=== PATIENT | male | born 1960 | race Caucasian/White ===

== ENCOUNTER 2016-09-23 01:03 | Inpatient (IN) | payer BC, OTHER ==
--- NOTE | ~2016-09-23 | EKG ---
PATIENT: BUSHRA GHOTRA UNIT #: [id number] Ventricular Rate: 70 BPM Atrial Rate: 70 BPM P-R Interval: 164 ms QRS Duration: 90 ms Q-T Interval: 448 ms QTC Calculation(Bezet): 483 ms P [place]: 55 degrees Calculated R [place]: -33 degrees Calculated T [place]: -51 degrees Diagnosis Line: Normal sinus rhythm Diagnosis Line: Left axis deviation Diagnosis Line: Anteroseptal infarct (cited on or before Diagnosis Line: 23-SEP-2016) Diagnosis Line: ST and T wave abnormality, consider lateral ischemia Diagnosis Line: Abnormal ECG Diagnosis Line: When compared with ECG of 23-SEP-2016 07:56, Diagnosis Line: (unconfirmed) Diagnosis Line: No significant change was found Diagnosis Line: Confirmed by CHAYA WILHELM MD ([id number]) on Diagnosis Line: 09/27/2016 5:15:37 PM INTERPRETING MD: JUAN JOSE
--- NOTE | ~2016-09-23 | DS ---
Unit #: [id number] #: [id number] Patient: BUSHRA GHOTRA [id number] [address] [address] [id number] MR#: [id number] NAME: BUSHRA GHOTRA ROOM: 316 Age: 56 Sex: M Admission Date: 09/23/2016 : 1960 Discharge Date: 09/26/2016 Attending Physician: Rene Simpson M.D. Primary Care Physician: No Primary Care Physician DISCHARGE SUMMARY DISCHARGE DIAGNOSES 1. Acute non-ST elevation myocardial infarction in the anteroseptal wall. 2. Two-dimensional echocardiogram, 09/23/2016, was a technically difficult study. Left ventricular systolic function moderately reduced with left ventricular ejection fraction 30% to 35%, severe septal hypokinesis, inferior wall hypokinesis, ymwh-bq-[id number] mitral regurgitation, [id number] tricuspid regurgitation. No evidence of pericardial effusion. Right ventricular systolic pressure 36 millimeters of mercury. 3. Coronary artery disease status post left cardiac catheterization on 09/23/[address] [facility] per Dr. Olivo revealed left main 70% distally before trifurcation into left anterior descending, ramus and left circumflex. Left anterior descending with chronic occlusion. Chronic total occlusion inside the stent starting at the ostium of the left anterior descending. Patent left internal mammary artery graft to the left anterior descending with 80% to 90% stenosis in the mid section of the left anterior descending involving the origin of the second diagonal branch. Distal half of the left anterior descending widely patent with MILDRED 3 flow. First diagonal branch of left anterior descending 99% at origin with retrograde flow from left internal mammary artery injection. Distal first diagonal large caliber and normal. Saphenous vein graft to the first diagonal branch occluded at its aortic anastomosis. Previous stent in the proximal left anterior descending occluded. Left circumflex chronic occlusion. Medium caliber, nondominant vessel, which is occluded in its proximal third. Marginal branch of the circumflex fills by patent saphenous vein graft. Marginal branch is large in caliber and normal. Right coronary artery chronic occlusion. In-stent chronic total occlusion at the junction of the proximal third and distal 2/3 of the right coronary artery. Saphenous vein graft to the distal right coronary artery occluded. Posterior descending artery branch small in caliber with retrograde collaterals from left anterior descending. Posterior descending artery branch may be bypassable. Previous stent in the mid right coronary artery occluded. Final diagnoses was 3-vessel occlusive disease with occlude vein graft to the right coronary artery and occluded vein graft to the first diagonal branch of the left anterior descending. Significant stenosis of the mid left anterior descending distal to the left internal mammary artery graft. Severe left ventricular systolic dysfunction. Uncontrolled hypertension. Medical management. If chest pain reoccurs, could undergo percutaneous coronary intervention with stent insertion on the distal left main leading into the ramus. Mid left anterior descending stenosis distal to left internal mammary artery could also Unit #: [id number] #: [id number] Patient: BUSHRA GHOTRA be dilated. Surgical opinion for redo bypass versus Hybrid percutaneous coronary intervention procedure on left main and mid left anterior descending. 4. Ischemic cardiomyopathy. 5. Nonsustained ventricular tachycardia. 6. Coronary artery bypass grafting in 2010 at [facility]. 7. Previous percutaneous coronary intervention and stent reportedly in 2000. 8. Hypertension. 9. Hyperlipidemia. 10. Reformed smoker. DISCHARGE MEDICATIONS 1. Atorvastatin 80 mg p.o. at bedtime. 2. Carvedilol 12.5 mg p.o. b.i.d. 3. Lisinopril 10 mg p.o. at bedtime. 4. Aspirin 81 mg p.o. daily. 5. Brilinta 90 mg p.o. b.i.d. 6. Spironolactone 12.5 mg p.o. daily. 7. Protonix 40 mg p.o. daily. 8. Isosorbide mononitrate 30 mg p.o. daily. 9. Nitroglycerin 0.4 mg sublingual q.5 minutes x3 p.r.n. chest pain. HOSPITAL COURSE This is a 56-year-old white male with a significant past medical history of coronary artery disease with previous myocardial infarction status post PCI and stent, reportedly in the right coronary artery in 2000 and later in 2010. The patient ultimately had 4-vessel coronary artery bypass grafting at [facility]. Since that time, he has not followed with a paper carrier. Patient reported that his prescriptions ran out approximately 6 months ago and has only been taking a baby aspirin. He did get a new job and currently has medical insurance but has not made an appointment or received any refills. He presented to the emergency department with complaints of chest pain. Please see details in H and P. In the emergency department, his blood pressure was elevated at 199/93 mmHg. EKG revealed sinus rhythm with some Q waves in the septal leads and evidence of anterolateral ischemia. Initial cardiac enzymes were negative. Chest x-ray revealed chronic increased interstitial markings. CT of the chest revealed no pulmonary embolus, but he did have a right upper lobe small tree-in-bud nodularity and linear airspace opacity that could be atelectasis versus some type of multifocal pneumonia. There was no evidence of pneumonia. He denied a fever, chills or cough. Labs did not suggest an active infection. He was given sublingual nitroglycerin and morphine. He was given a full dose of aspirin and therapeutic Lovenox, as well as a GI cocktail. He was admitted for initial concern for unstable angina. Serial cardiac enzymes were obtained, and he did rule in for an acute non-ST elevation myocardial infarction. Troponin was very high and peaked at 37.93. BNP was normal. There was no evidence of congestive heart failure. Cholesterol panel was abnormal with a total cholesterol of 239, and triglycerides 410. HDL was 42. LDL was unable to be calculated. TSH level was normal. He was admitted to the hospital for further management. He was given a full dose statin and started on normal saline. He was recommended to go for cardiac catheterization. He was taken for cardiac catheterization on 09/23/[address] Olivo. He was found to have 3-vessel occlusive disease Unit #: [id number] #: [id number] Patient: BUSHRA GHOTRA with occluded vein graft to the right coronary artery and occluded vein graft to the first diagonal of the LAD. There was also significant stenosis in the mid LAD distal to the REDDY graft. Ejection fraction was low at 30% to 35%. His blood pressure was elevated. He was advised to try medical therapy and was placed on nonselective beta-tita, DOYLE inhibitor, dual antiplatelet therapy, diuretic and long-acting nitrate. He was advised that if anginal could not be controlled on medical therapy, that he could undergo PCI with stent insertion on the distal left main leading into the ramus, as well as the mid LAD distal to the REDDY graft. According to the operative report, revascularizing the vein graft to the right coronary artery may not be beneficial, as long-term patency of this graft would be questionable. The patient could undergo a surgical opinion for redo bypass surgery versus Hybrid PCI procedure on the left main and mid LAD. He tolerated the procedure well and was transferred to telemetry for observation. His cardiac enzymes trended down. There were no further episodes of chest pain. A two-D echocardiogram was obtained and confirmed a low ejection fraction of 30% to 35%. There was mddc-rw-[id number] mitral and tricuspid regurgitation. RVSP was mildly elevated at 36 mmHg. Telemetry did reveal some episodes of nonsustained ventricular tachycardia. His carvedilol was adjusted as blood pressure tolerated. The patient's current blood pressure is 114/80 mmHg. There were no reports of dizziness, palpitations, shortness of breath or chest pain. Cath site is soft without hematoma. The patient has been seen by Dr. Rose and has been determined to be stable for discharge home. He is on maximal medical management. A LifeVest has been ordered due to ischemic cardiomyopathy, as well as episodes of nonsustained ventricular tachycardia on telemetry. The importance of taking medications has been discussed with the patient at length, and verbalizes understanding. He also verbalizes understanding of the need for the LifeVest. He is instructed to follow up with his primary care provider in 1-[address] Olivo in the next 4-6 weeks. He will need a repeat two-D echocardiogram within 90 days to reassess left ventricular function. If ejection fraction is less than or equal to 35%, he would qualify for an AICD. The patient initially was not agreeable for consideration for AICD, but upon further discussion, he does verbalize understanding and is willing to consider the procedure if needed. He has been instructed to stay off of work until his followup appointment. Of note, he is a lift truck operator, and due to myocardial infarction, ischemic cardiomyopathy and episodes of ventricular tachycardia, he cannot go back to work at this time. He has been instructed to call our office if paperwork is needed for his employer. DIAGNOSTIC STUDIES LABORATORY: White blood cell count 12.5, hemoglobin 14.8, hematocrit 44.6, platelets 168. Sodium 136, potassium 4.2, chloride 103, CO2 26, BUN 20, creatinine 1.2, glucose 101, magnesium 2.2, AST 24, ALT 27, alkaline phosphatase 132. Troponin 0.16, 3.18, 37.93, 15.26 and 8.86. BNP 44. Total cholesterol 239, triglycerides 410, LDL not calculated, HDL 42, TSH 4.03. Alcohol level less than 5. INR 0.9. Urine toxicology positive for opiates. IMAGING: Chest x-ray on 09/23/2016 revealed post surgical changes of CABG. No new pulmonary opacities. CT angio of the chest for PE on 09/23/2016 revealed negative PE. Small area of tree-in-bud nodularity in the right upper lobe likely representing an Unit #: [id number] #: [id number] Patient: BUSHRA GHOTRA acute infectious or inflammatory process. Predominantly linear airspace opacities in the lung bases. This has appearance more typical for atelectasis; however, could represent pneumonia. Small hiatal hernia and GERD. CARDIOVASCULAR: Electrocardiogram revealed normal sinus rhythm. T wave abnormality in the inferior leads. QTc 474 msec. DISCHARGE INSTRUCTIONS 1. The patient will be discharged home today. 2. Follow up with primary care provider in 1-2 weeks. 3. Follow up with Dr. Olivo in 4-6 weeks. Office will call with an appointment, as it is currently the weekend. 4. Post cath instructions provided. 5. Samples and co-pay card provided for Brilinta. 6. LifeVest ordered with the commercial sales representative to deliver equipment to the patient. 7. Educated on 2-gram sodium diet and 1,800 mL daily fluid restriction. 8. The patient has been instructed to call for weight gain greater than 3 pounds, shortness of breath or worsening edema. If chest pain recurs, he has been instructed to call our office. If symptoms persist or are severe, he has been instructed to go to the emergency department. 9. He has been advised at length to be compliant with medications and followup. 10. He has also been advised to refrain from tobacco abuse. Dictated by... Tori Gage APRN for Haylee Bowden/max TD: 10/03/2016 08:46 JOB #: [id number] DISCHARGE SUMMARY Page 1 of 1 X X DISCHARGE SUMMARY
--- NOTE | ~2016-09-23 | EKG ---
PATIENT: BUSHRA GHOTRA UNIT #: [id number] Ventricular Rate: 74 BPM Atrial Rate: 74 BPM P-R Interval: 194 ms QRS Duration: 96 ms Q-T Interval: 402 ms QTC Calculation(Bezet): 446 ms P [place]: 50 degrees Calculated R [place]: 0 degrees Calculated T [place]: 53 degrees Diagnosis Line: Normal sinus rhythm Diagnosis Line: Poor R wave progression questionable lead position Diagnosis Line: or body habitus Diagnosis Line: T wave abnormality, consider anterior ischemia Diagnosis Line: Abnormal ECG Diagnosis Line: No previous ECGs available Diagnosis Line: Confirmed by CHAYA WILHELM MD ([id number]) on Diagnosis Line: 09/27/2016 5:14:00 PM INTERPRETING MD: JUAN JOSE
--- NOTE | ~2016-09-23 | EKG ---
PATIENT: BUSHRA GHOTRA UNIT #: [id number] Ventricular Rate: 66 BPM Atrial Rate: 66 BPM P-R Interval: 168 ms QRS Duration: 86 ms Q-T Interval: 406 ms QTC Calculation(Bezet): 425 ms P [place]: 69 degrees Calculated R [place]: -29 degrees Calculated T [place]: 155 degrees Diagnosis Line: Normal sinus rhythm Diagnosis Line: Low voltage QRS Diagnosis Line: ST and T wave abnormality, consider anterolateral Diagnosis Line: ischemia Diagnosis Line: Abnormal ECG Diagnosis Line: No previous ECGs available Diagnosis Line: Confirmed by JOHN ESTRELLA MD ([id number]) on Diagnosis Line: 09/27/2016 3:11:13 PM INTERPRETING MD: SAMEER JACOBS
--- NOTE | ~2016-09-23 | CT16 ---
[facility] A Service of [facility] RADIOLOGY TEXT RESULTS PATIENT: BUSHRA GHOTRA LOCATION: C3A 316-01 : [birth year] UNIT #: [id number] AGE: [address]: Kirk Simpson MD SEX: M ORDER DR: [id number] [facility] [address] [place], [place] [address] [id number] MR#: [id number] Acc #: [id number] NAME: BUSHRA GHOTRA : 1960 SEX: M STUDY DATE/TIME: 09/23/2016 4:54 UNIT: [facility] ROOM: STUDY DESCRIPTION: CT Angio Chest for PE Attending Physician: Yuridia Magallon M.D. Ordering Physician: Yuridia Magallon M.D. Primary Care Physician: Primary Care Physician No MEDICAL IMAGING REPORT This report is preliminary unless electronic signature is present EXAM CTA chest INDICATION Upper chest pain for 1 day. Midsternal chest pain. Shortness of air. TECHNIQUE CT angiography of the chest utilizing 100 mL Isovue-370 IV contrast. Coronal 3-D MIP reconstructions and standard sagittal reconstructions were obtained. This CT examination was performed with one or more of the following radiation dose reduction techniques: automatic exposure control, adjustment of mA and/or kV according to patient size, and iterative reconstruction. COMPARISON Chest radiograph dated 09/23/2016. FINDINGS No central pulmonary embolus. Motion artifact in the lung bases limits evaluation of the peripheral pulmonary arteries. No thoracic aortic aneurysm or dissection. The thoracic aorta is normal in caliber. Patient is status post CABG. There is no pericardial or pleural effusion. There is a patulous appearance of the distal thoracic esophagus. There is some gastroesophageal reflux. There are some tree-in-bud nodularity in the right upper lobe with some linear airspace opacities in both lower lobes. The central airways are patent. No acute osseous abnormalities. [facility] A Service of [facility] RADIOLOGY TEXT RESULTS PATIENT: BUSHRA GHOTRA LOCATION: C3A 316-01 : [birth year] UNIT #: [id number] AGE: [address]: Kirk Simpson MD SEX: M ORDER DR: IMPRESSION 1. Negative for pulmonary embolus. 2. Small area of tree-in-bud nodularity in the right upper lobe likely represents an acute infectious/inflammatory process. 3. Predominantly linear airspace opacities in the lung bases. This has appearance more typical for atelectasis, however, could also represent a multifocal pneumonia. 4. Small hiatal hernia and gastroesophageal reflux. Dictated by... Chan Myers M.D. THIS IS AN ELECTRONICALLY VERIFIED REPORT Chan Myers M.D. at 09/27/2016 7:03 AM MECHE/abdulaziz TD: 09/23/2016 06:06 JOB #: [id number] MEDICAL IMAGING REPORT Page 1 of 1 COPY
--- NOTE | ~2016-09-23 | HP ---
Unit #: [id number] #: [id number] Patient: BUSHRA CORRALES [id number] [facility]. [place], [place] [address] [id number] MR#: [id number] NAME: BUSHRA CORRALES ROOM: 94775 Age: 56 Sex: M Admission Date: 09/23/2016 : 1960 Attending Physician: Rene Simpson M.D. Primary Care Physician: No Primary Care Physician HISTORY AND PHYSICAL HISTORY OF PRESENT ILLNESS This is a 56-year-old white male with known history of having coronary artery disease, had an angioplasty and stent to the RCA back in 2000 after an PA and later in 2010. She had another PA and reports a four vessel bypass at [facility]. Details are unavailable. Since that time, patient has not been recently following up with any superintendent marine. He used to go to a superintendent [facility] but has been a few years. He does follow up with his family doctor, Dr. Fraire. The patient said his prescriptions ran out about six months ago. He has not been on any medication, only aspirin daily. He said in the last several months got another job and got insurance again and could have ordered medication but has not been back to the doctor. The patient said last evening he had ate some chili and about an hour later he said he developed some substernal chest discomfort. He said it was with exertion when he was walking outside. He said he came inside. He sat down, he was diaphoretic. He said the tightness was across the chest. He rated it on a pain scale of 1 to 10 to be about a 6 or 7. He said he just felt hot and flushing and did get diaphoretic. He denies any shortness of breath, no palpitations, no dizziness. Denies any nausea or vomiting. He has not had any recent cough, fever or chills. The patient said the pain would go away after a couple of minutes but then it would recur. It was doing that over a time span of a couple of hours. He was concerned it could be his heart so he came to the emergency room for further evaluation and management. In the emergency room, the patient's blood pressure was 189/93, heart rate 67, respirations 15, temperature 97.1, O2 sat was 99% on room air. Her EKG showed sinus rhythm. It does show Q waves in the septal leads and does show some anterolateral ischemia. His initial cardiac enzymes are negative. The patient had a chest x-ray that showed chronic increased interstitial markings. He did have a CT of the chest that revealed no pulmonary embolism but he had a right upper lobe small tree-in-bud nodularity and linear airspace opacity that could be atelectasis versus some type of multifocal pneumonia. The patient was given some sublingual nitroglycerin and morphine and an aspirin 325 along with Lovenox 1 mg/kg subcu along with a GI cocktail. The patient's chest pain has been relieved. The patient will be admitted for further evaluation and management. PAST MEDICAL HISTORY 1. Coronary artery disease in 2000. It was reported that he had a myocardial infarction, status post PCI and stent to the RCA. Ejection fraction at that time was 45% to 50%. 2. Coronary artery bypass graft in 2010 at [facility], details unavailable. 3. Hypertension. Unit #: [id number] #: [id number] Patient: BUSHRA CORRALES 4. Hyperlipidemia. 5. Reformed smoker. PAST SURGICAL HISTORY 1. 2010 four vessel coronary artery bypass graft. 2. PCI and stent back in 2000. HOME MEDICATIONS These were listed by the patient. He has been out of them for about six months. 1. Metoprolol 25 mg p.o. twice daily. 2. Lisinopril 5 mg, one tablet daily. 3. Pravastatin 20 mg p.o. daily. 4. Plavix 75 mg p.o. daily. 5. Aspirin 81 mg daily. ALLERGIES No known drug allergies. SOCIAL HISTORY The patient lives in his home. 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 He quit smoking back in 2010, was a half to one pack per day smoker for about 25 years. No alcohol or illicit drug abuse. FAMILY HISTORY His step-brother, at the age of 35, of an PA and was on cocaine. He has another older step-brother that had a bypass. REVIEW OF SYSTEMS CONSTITUTIONAL: Denies fever or chills. No recent weight gain or weight loss. HEENT: Denies headache or dizziness. No visual or hearing changes. No lymphadenopathy or thyromegaly. No difficulty swallowing. CARDIOVASCULAR: Chest pain present. Denies palpitations. Denies increased lower extremity edema. PULMONARY: Denies shortness of breath, denies paroxysmal nocturnal dyspnea or orthopnea, denies cough. GI: Denies nausea, vomiting, diarrhea or abdominal pain. NEUROLOGICAL: No focal weakness. PHYSICAL EXAMINATION GENERAL: On exam, Mr. Corrales is a 56-year-old white male in no acute respiratory distress. He is awake, alert and oriented. VITAL SIGNS: Currently, after medication, the patient's blood pressure is 174/100, respirations 16, heart rate is 74, temperature is 97.1, O2 sats 96% on room air. NECK: Trachea midline. No thyromegaly or lymphadenopathy. Normal carotid upstrokes. No jugular venous distention. HEART: S1, S2. Regular rate and rhythm. No clicks, murmurs or rubs. LUNGS: Diminished. Otherwise clear. ABDOMEN: Soft, nontender. Positive bowel sounds present. EXTREMITIES: Pedal pulses are palpable. No pedal edema. DIAGNOSTIC STUDIES LABORATORY: Glucose is 127, BUN 16, creatinine 1.1, eGFR 75.7, sodium 135, potassium 4.0, chloride 104, CO2 22, calcium 9.1, magnesium 2.2, total protein 7.8, albumin 4.4, bili total 0.1, AST 24, ALT 27, alkaline Unit #: [id number] #: [id number] Patient: BUSHRA CORRALES. 132. BNP is 44. Alcohol level less than 5. WBC is 14.0, hemoglobin 16.6, hematocrit 49.3 and platelets of 206. Urine tox screen positive for opiates. Urinalysis is pending. CK MB is 1.6, troponin is less than 0.05. CK MB 2.2, troponin less than 0.05. Latest cardiac enzymes - CK total is 166, MB 9.5, percentage of MB 5.7 and troponin 0.16. IMAGING: Chest x-ray showed a chronically increased interstitial markings. No pleural effusions. CT of the chest with contrast shows negative for pulmonary embolism, small area of tree-in-bud nodularity in the right upper lobe, likely representing an acute infection or inflammatory process and linear airspace opacities in the lung bases. Could be atypical for atelectasis. However, could represent a multifocal pneumonia. CARDIOVASCULAR: EKG shows normal sinus rhythm with ventricular rate 66 beats/minute, Q waves in septal leads, poor R wave progression, left atrial abnormality, anterolateral ischemia. IMPRESSION 1. Chest pain, unstable angina. 2. History of coronary artery bypass graft, four vessel, in 2010 and status post percutaneous coronary intervention and stent to the right coronary artery in 2000 after a myocardial infarction. 3. Hypertension, poorly controlled. 4. Hyperlipidemia. 5. Reformed smoker. 6. Abnormal CT, possible atelectasis versus pneumonia. PLAN 1. Cardiac enzymes have increased troponin of 0.16 from 0.05. His EKG shows some anterolateral ischemia and, with his description of his chest pain after Dr. Olivo examined and interviewed the patient, recommends that the patient have a cardiac catheterization to further evaluate ischemic heart disease. 2. Discussed with the patient risks and benefits about the heart catheterization including risk of bleeding, myocardial infarction, stroke and even . The patient verbalizes understanding and agrees to proceed. 3. The patient will get Lipitor 80 mg p.o. stat. Will add a fasting lipid profile and TSH to his labs and evaluate. 4. Start the patient on half normal saline at 75 mL/hour. Continue patient on nitrate, a beta tita, aspirin and statin. He has been on Plavix. That will also be continued. Will discuss that after the heart catheterization. 5. On exam, there are no signs or symptoms of unstable angina. According to CT scan, he could have possibly some type of pneumonia versus atelectasis. Patient did get a dose of azithromycin. 6. Further recommendations pending per Dr. Olivo after the heart catheterization. 7. Encouraged the patient of compliancy with his medications and followup treatment with cardiology. 8. Further recommendations pending. Unit #: [id number] #: [id number] Patient: BUSHRA CORRALES Dictated by Shelli De Jesus A.P.R.N. for Haylee Shukla TD: 09/23/2016 08:59 JOB #: [id number] HISTORY AND PHYSICAL Page 1 of 1 X Shelli De Jesus APRN X HISTORY AND PHYSICAL
--- NOTE | ~2016-09-23 | EKG ---
PATIENT: BUSHRA GHOTRA UNIT #: [id number] Ventricular Rate: 68 BPM Atrial Rate: 68 BPM P-R Interval: 180 ms QRS Duration: 100 ms Q-T Interval: 446 ms QTC Calculation(Bezet): 474 ms P [place]: 51 degrees Calculated R [place]: 70 degrees Calculated T [place]: -46 degrees Diagnosis Line: Normal sinus rhythm Diagnosis Line: Consider prior anteroseptal infarct (cited on or Diagnosis Line: before 23-SEP-2016) Diagnosis Line: ST and T wave abnormality, consider inferior Diagnosis Line: ischemia Diagnosis Line: Abnormal ECG Diagnosis Line: When compared with ECG of 24-SEP-2016 06:10, Diagnosis Line: (unconfirmed) Diagnosis Line: QRS axis Shifted right Diagnosis Line: Diagnosis Line: Confirmed by CHAYA WILHELM MD ([id number]) on Diagnosis Line: 09/27/2016 5:19:54 PM INTERPRETING MD: JUAN JOSE
--- NOTE | ~2016-09-23 | CR72 ---
[facility] A Service of [facility] & [facility] RADIOLOGY TEXT RESULTS PATIENT: BUSHRA GHOTRA LOCATION: [facility] : 64 UNIT #: [id number] AGE: [address]: Yuridia Magallon MD SEX: M ORDER DR: [id number] [place], [place] [address] [id number] MR#: [id number] Acc #: [id number] NAME: BUSHRA GHOTRA : 1960 SEX: M STUDY DATE/TIME: 09/23/2016 1:50 UNIT: [facility] ROOM: STUDY DESCRIPTION: CR Chest Single View Portable Attending Physician: Yuridia Magallon M.D. Ordering Physician: Yuridia Magallon M.D. Primary Care Physician: Primary Care Physician No MEDICAL IMAGING REPORT This report is preliminary unless electronic signature is present EXAM Single view chest INDICATION Chest pain for 1 day. FINDINGS Single portable AP view of the chest compared to 11/23/2005. The heart and mediastinal contours are within normal limits. Patient is status post CABG. There is some chronically increased interstitial markings. No pleural effusion. IMPRESSION Postsurgical changes of CABG. No new pulmonary opacities. Dictated by... Chan Myers M.D. THIS IS AN ELECTRONICALLY VERIFIED REPORT Chan Myers M.D. at 09/23/2016 4:30 AM MECHE/judith TD: 09/23/2016 02:39 JOB #: [id number] MEDICAL IMAGING REPORT Page 1 of 1 COPY
[~2016-09-23 01:03] MED LIST: LISINOPRIL; METOPROLOL TAR25 MG DOB; PLAVIX PO; PRAVACHOL PO
[2016-09-23 01:55] LABS: BASOPHIL# 0.1 X10e3 (0-0.3); BASOPHIL% 1.1 % (0-2.5); DIFF IND NO; EOSINOPHIL# 0.1 X10e3 (0-0.7); EOSINOPHIL% 0.7 % (0.0-7.0); HEMATOCRIT 49.3 % (38.0-50.0); HEMOGLOBIN 16.6 gm/dL (13.0-16.0); LYMPHOCYTE# 2.6 X10e3 (1.0-3.5); LYMPHOCYTE% 18.6 % (17.0-45.0); MEAN CELL VOLUME 87.7 FL (83-96); MEAN CORPUSCULAR HEMOGLOBIN 29.6 PG (28-34); MEAN CORPUSCULAR HGB CONC 33.7 g/dL (30-36); MEAN PLATELET VOLUME 9.7 FL (6.5-11.5); MONOCYTE# 0.7 X10e3 (0-1.0); MONOCYTE% 5.2 % (3.0-12.0); NEUTROPHIL# 10.4 X10e3 (1.5-7.1); NEUTROPHIL% 74.4 % (40-75); PLATELET COUNT 206 X10e3 (140-420); RED BLOOD COUNT 5.62 X10e (3.90-5.60); RED CELL DISTRIBUTION WIDTH 13.3 % (11.0-15.5)
[2016-09-23 02:10] LABS: INR 0.9; PARTIAL THROMBOPLASTIN TIME 29.2 SECONDS (23.5-31.3); PROTHROMBIN TIME (PATIENT) 9.7 SECONDS (9.6-11.5)
[2016-09-23 02:13] LABS: POC - CKMB 2.2 ng/mL (0.0-7.9); POC - TROPONIN <0.05 ng/mL (<=0.05)
[2016-09-23 02:52] LABS: ALBUMIN SERUM 4.4 g/dL (3.5-5.0); ALKALINE PHOSPHATASE 132 U/L (32-92); ALT (SGPT) 27 U/L (10-40); AST (SGOT) 24 U/L (10-42); BILIRUBIN,TOTAL 0.7 mg/dL (0.2-2.0); BLOOD UREA NITROGEN 16 mg/dL (9-23); BUN/CREATININE RATIO 14.54; CALCIUM SERUM 9.1 mg/dL (8.4-10.2); CARBON DIOXIDE 22 mmol/L (22-31); CHLORIDE 104 mmol/L (100-111); CREATININE SERUM 1.1 mg/dL (0.6-1.4); GLOM FILT RATE Estimated 75.7 mL/min (>60); GLUCOSE FASTING 127 mg/dL (70-110); MAGNESIUM 2.2 mg/dL (1.6-3.0); PROTEIN TOTAL SERUM 7.8 g/dL (6.0-8.3); SODIUM 135 mmol/L (135-145)
[2016-09-23 03:01] LABS: ALCOHOL BLOOD <5 mg/dL ([, 0]); BILIRUBIN, DIRECT 0.1 mg/dL (0.0-0.2); BILIRUBIN,INDIRECT 0.6 mg/dL (0.0-0.9)
[2016-09-23] MEDS ORDERED: ASPIRIN81 M2 PO (03:10)
[2016-09-23 03:38] LABS: POC - CKMB 1.6 ng/mL (0.0-7.9); POC - TROPONIN <0.05 ng/mL (<=0.05)
[2016-09-23 06:23] LABS: AMPHETAMINE NEG (NEG); BARBITURATES NEG (NEG); BENZODIAZEPINES NEG (NEG); COCAINE NEG (NEG); MARIJUANA NEG (NEG); OPIATES POS (NEG); TRICYCLIC ANTIDEPRESSANTS NEG (NEG); U METHADONE NEG (NEG)
[2016-09-23 07:39] LABS: %MB 5.7 % (0.0-4.0); MB 9.5 ng/ml
[2016-09-23 09:00] LABS: CHOLESTEROL 239 mg/dL (0-200); HDL CHOLESTEROL 42 mg/dL (29-75); TRIGLYCERIDES 410 mg/dL (10-160)
[2016-09-23 13:30] LABS: %MB 17.5 % (0.0-4.0); MB 129.4 ng/ml
[2016-09-24 05:16] LABS: HEMATOCRIT 46.5 % (38.0-50.0); HEMOGLOBIN 15.4 gm/dL (13.0-16.0); MEAN CELL VOLUME 87.7 FL (83-96); MEAN CORPUSCULAR HGB CONC 33.1 g/dL (30-36); MEAN PLATELET VOLUME 9.2 FL (6.5-11.5); RED BLOOD COUNT 5.3 X10e (3.90-5.60); RED CELL DISTRIBUTION WIDTH 13.3 % (11.0-15.5); WHITE BLOOD COUNT 13.5 X10e3 (4.0-10.5)
[2016-09-24 06:03] LABS: CALCIUM SERUM 8.7 mg/dL (8.4-10.2); POTASSIUM 4.2 mmol/L (3.5-5.1)
[2016-09-25 04:34] LABS: HEMATOCRIT 44.6 % (38.0-50.0); HEMOGLOBIN 14.8 gm/dL (13.0-16.0); MEAN CELL VOLUME 88.4 FL (83-96); MEAN CORPUSCULAR HEMOGLOBIN 29.3 PG (28-34); MEAN CORPUSCULAR HGB CONC 33.1 g/dL (30-36); MEAN PLATELET VOLUME 9.9 FL (6.5-11.5); RED BLOOD COUNT 5.04 X10e (3.90-5.60); RED CELL DISTRIBUTION WIDTH 13.4 % (11.0-15.5); WHITE BLOOD COUNT 12.5 X10e3 (4.0-10.5)
[2016-09-25 04:53] LABS: BUN/CREATININE RATIO 16.66; CALCIUM SERUM 8.7 mg/dL (8.4-10.2); CREATININE SERUM 1.2 mg/dL (0.6-1.4); GLOM FILT RATE Estimated 68.2 mL/min (>60); POTASSIUM 4.2 mmol/L (3.5-5.1)
[2016-09-26] MEDS ORDERED: LIPITOR80 MG PO (07:51)
[2016-09-26] MEDS ORDERED: LISINOPRIL10 MG PO (07:52)
[2016-09-26] MEDS ORDERED: COREG12.5 MG PO (07:52)
[2016-09-26] MEDS ORDERED: BRILINTA90 MG PO (07:53)
[2016-09-26] MEDS ORDERED: ALDACTONE25 MG PO (07:54)
[2016-09-26] MEDS ORDERED: PROTONIX PO (07:56)
[2016-09-26] MEDS ORDERED: IMDUR-ER30 M1 PO (07:57)
[2016-09-26] MEDS ORDERED: NITROQUICK0.4 MG SL (10:49)
== END 2016-09-26 12:03 | disposition home or self-care (01) | DRG 281 ==
LOC: CED 01:03 → C3A PCU 05:35 → CEDOF 05:35 → CED 06:00 → CEDOF 06:00 → C3A PCU 12:00 → CEDOF 12:00 → C3A PCU 09-26 12:03
PROVIDERS: Internal Medicine Cardiovascular Disease; Nurse Practitioner; Student in an Organized Health Care Education/Training Program
PROC: B32TYZZ Computerized Tomography (CT Scan) of Left Pulmonary Artery using Other Contrast (ICD-10-PCS; principal; 2016-09-23)
PROC: B32SYZZ Computerized Tomography (CT Scan) of Right Pulmonary Artery using Other Contrast (ICD-10-PCS; 2016-09-23)
PROC: B24BYZZ Ultrasonography of Heart with Aorta using Other Contrast (ICD-10-PCS; 2016-09-25)
PROC: 4A023N7 Measurement of Cardiac Sampling and Pressure, Left Heart, Percutaneous Approach (ICD-10-PCS; 2016-09-25)
PROC: B213YZZ Fluoroscopy of Multiple Coronary Artery Bypass Grafts using Other Contrast (ICD-10-PCS; 2016-09-25)
PROC: B211YZZ Fluoroscopy of Multiple Coronary Arteries using Other Contrast (ICD-10-PCS; 2016-09-25)
PROC: B215YZZ Fluoroscopy of Left Heart using Other Contrast (ICD-10-PCS; 2016-09-25)
DX: I21.09 ST elevation (STEMI) myocardial infarction involving other coronary artery of anterior wall (principal); I47.2 Ventricular tachycardia; I25.719 Atherosclerosis of autologous vein coronary artery bypass graft(s) with unspecified angina pectoris; I08.1 Rheumatic disorders of both mitral and tricuspid valves; I25.119 Atherosclerotic heart disease of native coronary artery with unspecified angina pectoris; Z95.5 Presence of coronary angioplasty implant and graft; I10 Essential (primary) hypertension; E78.5 Hyperlipidemia, unspecified; Z87.891 Personal history of nicotine dependence; I25.5 Ischemic cardiomyopathy; Z79.82 Long term (current) use of aspirin
CPT/HCPCS: 36415; 71010; 71275; 80048; 80061; 80076; 80307; 82550; 82553; 83735; 83880; 84443; 84484; 85025; 85027; 85610; 85730; 93005; 93306; 96372; 96374; 96375; 99285; C1769; C1887; C1894; C9113; G0480; J0461; J1644; J1650; J1885; J2060; J2250; J2270; J3010; Q9967